=== PATIENT | male | born 1945 | race Caucasian/White ===

== ENCOUNTER 2020-05-26 09:33 | Inpatient (IN) ==
[2020-05-26] MEDS ORDERED: ONDANSETRON HCL/PF 2 MG/ML VIAL IV ONE (10:07)
[2020-05-26] MEDS ORDERED: METOPROLOL TARTRATE 25 MG TABLET PO ONE (10:09)
[2020-05-26] MEDS ORDERED: LISINOPRIL 10 MG TABLET PO ONE (10:09)
[2020-05-26] MEDS ORDERED: PANTOPRAZOLE SODIUM 40 MG TABLET.EC PO ONE (10:11)
[2020-05-26] MEDS ORDERED: NON-FORMULARY 1 DOSE DOSE PO SCH (10:15)
[2020-05-26 10:21] LABS: Hemoglobin 9.4 gm/dL (13.5-18.0); Mean Cell Volume 95.4 fl (78-100); Mean Corpuscular Hemoglobin 30.9 pg (27-31); Mean Corpuscular Hgb Conc 32.4 g/dl (32-36); Mean Platelet Volume 10.5 fl (8-11.3); Neutrophil % 75.1 % (42-75.0); Platelet Count 133 K/mm3 (150-450); Red Blood Count 3.04 M/mm3 (4.7-6.0); Red Cell Distribution Width 13.8 % (11.5-14.0)
[2020-05-26 10:38] LABS: Anion Gap 19.5 mmol/L (6.8-13.8); BUN/Creatinine Ratio 24.6 (9.0-21.6); Calcium * 8.5 mg/dL (7.9-10.9); Carbon Dioxide 22.9 mmol/L (24-32.6); Potassium 3.4 mmol/L (3.4-4.6); Total Protein 6.6 gm/dL (6.2-8.2); Troponin I 0.102 ng/mL (0.00-0.10)
[2020-05-26] MEDS ORDERED: NORMAL SALINE 500 ML IV ONE (10:43)
--- NOTE | 2020-05-26 10:49 | ERNOTE ---
Medical Problem HPI - Narrative Date of Service: 05/26/20 - General Chief Complaint: General Assessment Time Seen by Provider: 05/26/20 09:49 Source: patient Exam Limitations: no limitations - Immun/Allergies/Home Medications Immunizations: IMMUNIZATION HX Immunizations Up to Date Yes History of Influenza Vaccine Yes Hx Pneumococcal Vaccination Yes Allergies/Adverse Reactions: Allergies No Known Allergies Allergy (Unverified 03/06/14 13:51) Home Medications: HOME MEDICATIONS Aspirin [Aspirin EC] 81 mg PO DAILY 05/26/20 [Last Taken Unknown] Atorvastatin Calcium [Lipitor] 20 mg PO DAILY 05/26/20 [Last Taken Unknown] Chlorthalidone [Hygroton] 25 mg PO DAILY 05/26/20 [Last Taken Unknown] Folic Acid 1 mg PO DAILY 05/26/20 [Last Taken Unknown] Insulin Glargine,Hum.rec.anlog [Lantus] 30 units SC HS 05/26/20 [Last Taken Unknown] Lisinopril [Zestril] 40 mg PO DAILY 05/26/20 [Last Taken Unknown] Methotrexate Sodium [Methotrexate] 2.5 mg PO DAILY 05/26/20 [Last Taken Unknown] Metoprolol Tartrate [Lopressor] 25 mg PO BID 05/26/20 [Last Taken Unknown] Terazosin HCl 10 mg PO DAILY 05/26/20 [Last Taken Unknown] glipiZIDE [Glipizide] 5 mg PO DAILY 05/26/20 [Last Taken Unknown] sulfaSALAzine [Azulfidine] 1,500 mg PO TID 05/26/20 [Last Taken Unknown] - History of Present History Narrative: This patient is 74-year-old male who was brought in by his brother for evaluation. The patient says that he does not feel well. The patient does not get any more specific. He denies fever and cold symptoms. He has a chronic cough that has been attributed to some of his medications. He is feeling lightheaded. He is nauseated once in a while. He has had diarrhea for the past 2 days. He denies headache. He denies chest pain. He denies any other aches or pains. He says that he has been taking his medication. He has not taken any this morning. His brother says that the patient ran out of food at home. He has not eaten for a number days. The brother took him to a restaurant this morning and he only had 1 bite of pancake and felt like he could not eat anymore. Review of Systems - Review of Systems Constitutional: Present: malaise. Absent: recent illness, fever EYE: Absent: vision changes ENT: Absent: ear pain, nose congestion, nasal drainage, sore throat Respiratory: Present: cough. Absent: shortness of breath Cardiology: Absent: chest pain, palpitations, syncope Gastrointestinal/Abdominal: Present: nausea, diarrhea, eating less. Absent: vomiting, constipation, abdominal pain, drinking less Genitourinary: Absent: frequency, pain, dysuria, hematuria Musculoskeletal: Absent: back pain, neck pain, joint pain Skin: Absent: rash Neurological: Present: dizziness/light-headedness. Absent: headache Endocrine: Present: other - He has diabetes and reports that he has been taking his medications. Hematologic/Lymphatic: Present: other - No active bleeding Psych: Present: no symptoms reported Medical History (Last Reviewed 05/26/20 @ 11:10 by Alfredo Frazier MD) BPH (benign prostatic hyperplasia) Diabetes Hypertension Hyperthyroidism Prostate cancer Surgical History: Surgical History (Last Reviewed 05/26/20 @ 11:10 by Alfredo Frazier MD) Hx laparoscopic cholecystectomy Hx of tonsillectomy Family History: Family History (Last Reviewed 05/26/20 @ 11:10 by Alfredo Frazier MD) Other No pertinent family history Social History: (Last Reviewed 05/26/20 @ 11:10 by Alfredo Frazier MD) Social History: lives independently: Yes household members: none Tobacco: Smoking Status: Former smoker Alcohol: alcohol intake: former Substance Use: substance use type: does not use Physical Exam - Physical Exam General Appearance: Present: wd/wn, alert, no apparent distress Head Exam: Present: normal inspection, no evidence of injury Eye Exam: Normal inspection: bilateral Ears, Nose, Throat: Present: normal ENT inspection Neck: Present: normal inspection Respiratory: Present: no respiratory distress, decreased breath sounds - Right side and left lower lobe Cardiovascular/Chest: Present: regular rate, rhythm, no murmur Gastrointestinal/Abdominal: Present: normal bowel sounds, nontender, nondistended, soft, no organomegaly Back Exam: Present: normal inspection, normal range of motion Extremity Exam: Present: normal inspection, non-tender Neurological Exam: Present: alert, oriented, normal mood/affect - Flat affect., no motor/sensory deficits - No gross lateralizing deficit. Skin Exam: Present: normal color, warm/dry Progress - Date and Time Seen: Date and Time: 05/26/20 12:49 The x-ray, EKG, and labs are back. We have asked for records from the [facility]. I spoke with Dr. Kay who agreed to take care of the patient here. I spoke with the [facility] who wanted to be sure the patient agreed to transfer. The patient does not want to go to the [facility]. The [facility] will fax a refusal form. - Results and Orders Patient's Lab Results:: I have reviewed the patient's lab results. Results and Orders: Laboratory Tests 05/26/20 05/26/20 10:15 10:15 WBC 4.0 RBC 3.04 L Hgb 9.4 L Hct 29.0 L MCV 95.4 MCH 30.9 MCHC 32.4 RDW 13.8 Plt Count 133 L MPV 10.5 Immature Gran % (Auto) 1.00 H Immature Gran # (Auto) 0.04 H Neutrophils % 75.1 H Lymphocytes % 12.1 L Monocytes % 11.6 H Eosinophils % 0.0 Basophils % 0.2 Nucleated RBC % 0.0 Neutrophils # 3.0 Lymphocytes # 0.49 L Monocytes # 0.5 Eosinophils # 0.0 Absolute Basophils 0.0 Sodium 136 Plasma Sodium 137 Potassium 3.4 Chloride 97 Carbon Dioxide 22.9 L Anion Gap 19.5 H BUN 44 H Creatinine 1.79 H Est GFR (Non-Af Amer) 39 L BUN/Creatinine Ratio 24.6 H Random Glucose 160 H Calcium 8.5 Calcium Adj for Albumin 9.0 Total Bilirubin 1.0 AST 59 H ALT 39 Alkaline Phosphatase 67 Troponin I 0.102 H Total Protein 6.6 Albumin 3.0 L Laboratory Tests 05/26/20 11:59 Urine Color Yellow Urine Appearance Slightly cloudy Urine pH 5.5 Ur Specific [place] 1.030 Urine Protein 100 H Urine Glucose (UA) Negative Urine Ketones 15 Urine Blood 25 H Urine Nitrate Negative Urine Bilirubin 1 H Urine Urobilinogen Normal Ur Leukocyte Esterase Negative Urine RBC 0-5 Urine WBC 0-5 Ur Epithelial Cells None seen Urine Bacteria 1+ H Urine Culture Comments No culture indicated - Vital Signs Patient's Vital Signs:: I have reviewed the patient's vital signs. Vital Signs: Vital Signs 05/26/20 09:35 Temperature 36.5 C Pulse Rate 92 Respiratory Rate 12 Blood Pressure 188/59 H O2 Sat by Pulse Oximetry 94 - EKG EKG #1 EKG read: Interp. by me EKG Comments: Sinus rhythm Rate 87 Right bundle branch block Left anterior fascicular block No acute appearing ST or T wave changes No old to compare - X-Ray X-Ray #1 X-Ray: chest Interpretation: Interp. by me X-ray Comments: Chest PA & Lateral *~ Exam Date: 05/26/2020 10:24 Ordering Physician: Alfredo Frazier MD Chest PA Lateral * History: decresed breath sounds on right weakness. Not eating. Diarrhea last 3 days. Technique: Frontal and lateral views of the chest. (2) views. Comparison: None. Findings: The lungs are symmetrically inflated. No focal consolidation. No pneumothorax or pleural effusion. The cardiac silhouette is borderline enlarged. Scattered calcified granulomas. Atherosclerotic changes noted at the aortic arch. Mediastinal contours and pulmonary vasculature are normal. Degenerative changes noted. Surgical clips project over the upper abdomen. IMPRESSION: No acute pulmonary findings. Borderline cardiac silhouette enlargement. No radiographic evidence of congestive heart failure. Electronically signed by Dakota Cerrato D.O.. - Progress/Reassessment Chief Complaint: General Assessment Departure Clinical Impression: Dehydration, Elevated troponin, Gastritis, Diarrhea - Departure Disposition: Still a patient Condition: Stable Referrals: Melody Mahoney MD [Primary Care Provider] -
[2020-05-26] MEDS: NORMAL SALINE 1,000 ML IV ONE ×3 (11:01→12:05)
[2020-05-26] MEDS ORDERED: CHLORTHALIDONE 25 MG TABLET PO ONE (11:30)
[2020-05-26 12:19] LABS: Urine Appearance Slightly Cloudy (CLEAR); Urine Color Yellow
[2020-05-26 12:20] LABS: Urine Bacteria 1+; Urine Bilirubin 1 mg/dl (NEGATIVE); Urine Blood 25 /ul (NEGATIVE); Urine Ketone 15 mg/dL (NEGATIVE); Urine Nitrite Negative (NEGATIVE); Urine Protein 100 mg/dL (NEGATIVE); Urine RBC 0-5 /hpf (0-5); Urine Urobilinogen Normal (NORMAL); Urine WBC 0-5 /hpf (0-5); Urine pH 5.5 pH (5.0-7.0)
[2020-05-26] MEDS ORDERED: KETAMINE HCL 50 MG/ML VIAL IV PRN ×2 (13:26→13:27)
[2020-05-26] MEDS: ACETAMINOPHEN 500 MG TABLET PO PRN (21:22)
[2020-05-26] MEDS: METOPROLOL TARTRATE 25 MG TABLET PO SCH (21:22)
[2020-05-27] MEDS: NORMAL SALINE 1,000 ML IV PRN ×3 (00:19→16:45)
--- NOTE | 2020-05-27 05:32 | HP ---
Chief Complaint - Chief Complaint Date of Service: 05/26/20 Time of Service: 20:00 Chief Complaint: Decreased appetite History of Present Illness: Michael is a 74 yo male presenting to the [facility] ER for decreased appetite. He reports the last week having decreased appetite, although he thinks he has been drinking appropriately. He thought his appetite was a little better so he called his son who took him out to eat but he was only able to eat a few bites and was then brought to the ER to be evaluated. In the ER his creatinine was elevated at 1.79. His troponin is elevated at 0.102. He denies chest pain, shortness of breath, or any other new symptoms beyond fatigue and decreased appetite. His COVID-19 test in the ER was positive. Medical History (Last Reviewed 05/26/20 @ 15:01 by Chapin Chou RN) BPH (benign prostatic hyperplasia) Diabetes Hypertension Hyperthyroidism Prostate cancer Surgical History: Surgical History (Last Reviewed 05/26/20 @ 15:01 by Chapin Chou RN) Hx laparoscopic cholecystectomy Hx of tonsillectomy Family History: Family History (Last Reviewed 05/26/20 @ 15:01 by Chapin Chou RN) Other No pertinent family history Social History: (Last Reviewed 05/26/20 @ 15:01 by Chapin Chou RN) Social History: lives independently: Yes household members: none Tobacco: Smoking Status: Former smoker Alcohol: alcohol intake: former Substance Use: substance use type: does not use Review Of Systems (GEN) - Review of Systems Generalized/Overall Review: Present: Weakness. Absent: Chills, Fever Respiratory: Absent: Cough, Shortness of Breath Cardiac: Absent: Chest Pain, Edema, Palpitations Abdominal: Absent: Nausea, Vomiting Genitourinary: Present: No Symptoms Reported Musculoskeletal: Present: No Symptoms Reported Neurological: Present: No Symptoms Reported Skin: Present: No Symptoms Reported Immunizations: IMMUNIZATION HX Immunizations Up to Date Yes History of Influenza Vaccine Yes Hx Pneumococcal Vaccination Yes Allergies/Adverse Reactions: Allergies Allergy/AdvReac Type Severity Reaction Status Date / Time No Known Allergies Allergy Unverified 05/26/20 15:01 Home Medications: HOME MEDICATIONS Aspirin [Aspirin EC] 81 mg PO DAILY 05/26/20 [Last Taken Unknown] Atorvastatin Calcium [Lipitor] 20 mg PO DAILY 05/26/20 [Last Taken Unknown] Chlorthalidone [Hygroton] 25 mg PO DAILY 05/26/20 [Last Taken Unknown] Folic Acid 1 mg PO DAILY 05/26/20 [Last Taken Unknown] Insulin Glargine,Hum.rec.anlog [Lantus] 30 units SC HS 05/26/20 [Last Taken Unknown] Lisinopril [Zestril] 40 mg PO DAILY 05/26/20 [Last Taken Unknown] Methotrexate Sodium [Methotrexate] 2.5 mg PO DAILY 05/26/20 [Last Taken Unknown] Metoprolol Tartrate [Lopressor] 25 mg PO BID 05/26/20 [Last Taken Unknown] Terazosin HCl 10 mg PO DAILY 05/26/20 [Last Taken Unknown] glipiZIDE [Glipizide] 5 mg PO DAILY 05/26/20 [Last Taken Unknown] sulfaSALAzine [Azulfidine] 1,500 mg PO TID 05/26/20 [Last Taken Unknown] Exam - Exam Vital Signs: Vital Signs - Last Taken Temp 37.6 C 05/27/20 02:52 Pulse 59 L 05/27/20 02:52 Resp 14 05/27/20 02:52 BP 129/51 05/27/20 02:52 Pulse Ox 98 05/27/20 02:52 Constitutional: Present: Alert, Oriented x3, Cooperative ENT Exam: Present: hearing grossly normal Eye Exam: bilateral eye: normal inspection Respiratory: Present: lungs clear, normal breath sounds, no respiratory distress Cardiovascular/Chest: Present: regular rate, rhythm, no murmur Peripheral Pulses: radial (R): 2+, radial (L): 2+ Abdomen: Present: Normal bowel sounds, soft, nontender, nondistended Skin Exam: Present: normal color, warm/dry, no cyanosis Appearance: Present: appropriate appearance, appropriate insight Eye contact: Present: cooperative, good eye contact, normal speech Thoughts: Present: normal thought pattern, no apparent hallucination Diagnostic Studies: Abnormal Lab Results 05/26/20 05/26/20 05/26/20 Range/Units 10:15 10:15 11:59 RBC 3.04 L (4.7-6.0) M/mm3 Hgb 9.4 L (13.5-18.0) gm/dL Hct 29.0 L (42.0-52.0) % Plt Count 133 L (150-450) K/mm3 Immature Gran % (Auto) 1.00 H (0.001-0.429) % Immature Gran # (Auto) 0.04 H (0.000-0.0310) K/mm3 Neutrophils % 75.1 H (42-75.0) % Lymphocytes % 12.1 L (20-51) % Monocytes % 11.6 H (0.0-9) % Lymphocytes # 0.49 L (1.5-3.5) k/mm3 Carbon Dioxide 22.9 L (24-32.6) mmol/L Anion Gap 19.5 H (6.8-13.8) mmol/L BUN 44 H (6-23) mg/dL Creatinine 1.79 H (0.4-1.4) mg/dL Est GFR (Non-Af Amer) 39 L (60-130) mL/min BUN/Creatinine Ratio 24.6 H (9.0-21.6) Random Glucose 160 H (70-110) mg/dL AST 59 H (0-48) U/L Troponin I 0.102 H (0.00-0.10) ng/mL Albumin 3.0 L (3.4-5.0) gm/dl Urine Protein 100 H (NEGATIVE) mg/dL Urine Blood 25 H (NEGATIVE) /ul Urine Bilirubin 1 H (NEGATIVE) mg/dl Urine Bacteria 1+ H (NONE) SARS-CoV-2 (PCR) (NotDetected) 05/26/20 05/26/20 Range/Units 12:59 13:28 RBC (4.7-6.0) M/mm3 Hgb (13.5-18.0) gm/dL Hct (42.0-52.0) % Plt Count (150-450) K/mm3 Immature Gran % (Auto) (0.001-0.429) % Immature Gran # (Auto) (0.000-0.0310) K/mm3 Neutrophils % (42-75.0) % Lymphocytes % (20-51) % Monocytes % (0.0-9) % Lymphocytes # (1.5-3.5) k/mm3 Carbon Dioxide (24-32.6) mmol/L Anion Gap (6.8-13.8) mmol/L BUN (6-23) mg/dL Creatinine (0.4-1.4) mg/dL Est GFR (Non-Af Amer) (60-130) mL/min BUN/Creatinine Ratio (9.0-21.6) Random Glucose (70-110) mg/dL AST (0-48) U/L Troponin I 0.156 H* (0.00-0.10) ng/mL Albumin (3.4-5.0) gm/dl Urine Protein (NEGATIVE) mg/dL Urine Blood (NEGATIVE) /ul Urine Bilirubin (NEGATIVE) mg/dl Urine Bacteria (NONE) SARS-CoV-2 (PCR) Detected H (NotDetected) Laboratory Results WBC 4.0 K/mm3 (4.0-10.5) 05/26/20 10:15 RBC 3.04 M/mm3 (4.7-6.0) L 05/26/20 10:15 Hgb 9.4 gm/dL (13.5-18.0) L 05/26/20 10:15 Hct 29.0 % (42.0-52.0) L 05/26/20 10:15 MCV 95.4 fl (78-100) 05/26/20 10:15 MCH 30.9 pg (27-31) 05/26/20 10:15 MCHC 32.4 g/dl (32-36) 05/26/20 10:15 RDW 13.8 % (11.5-14.0) 05/26/20 10:15 Plt Count 133 K/mm3 (150-450) L 05/26/20 10:15 MPV 10.5 fl (8-11.3) 05/26/20 10:15 Immature Gran % (Auto) 1.00 % (0.001-0.429) H 05/26/20 10:15 Immature Gran # (Auto) 0.04 K/mm3 (0.000-0.0310) H 05/26/20 10:15 Neutrophils % 75.1 % (42-75.0) H 05/26/20 10:15 Lymphocytes % 12.1 % (20-51) L 05/26/20 10:15 Monocytes % 11.6 % (0.0-9) H 05/26/20 10:15 Eosinophils % 0.0 % (0.0-3.0) 05/26/20 10:15 Basophils % 0.2 % (0.0-1.0) 05/26/20 10:15 Nucleated RBC % 0.0 k/mm3 (0-1) 05/26/20 10:15 Neutrophils # 3.0 K/mm3 (1.3-6.0) 05/26/20 10:15 Lymphocytes # 0.49 k/mm3 (1.5-3.5) L 05/26/20 10:15 Monocytes # 0.5 k/mm3 (0.0-1.0) 05/26/20 10:15 Eosinophils # 0.0 k/mm3 (0.0-0.7) 05/26/20 10:15 Absolute Basophils 0.0 k/mm3 (0.0-0.1) 05/26/20 10:15 Sodium 136 mmol/L (132-142) 05/26/20 10:15 Plasma Sodium 137 mmol/L (130-142) 05/26/20 10:15 Potassium 3.4 mmol/L (3.4-4.6) 05/26/20 10:15 Chloride 97 mmol/L (97-106) 05/26/20 10:15 Carbon Dioxide 22.9 mmol/L (24-32.6) L 05/26/20 10:15 Anion Gap 19.5 mmol/L (6.8-13.8) H 05/26/20 10:15 BUN 44 mg/dL (6-23) H 05/26/20 10:15 Creatinine 1.79 mg/dL (0.4-1.4) H 05/26/20 10:15 Est GFR (Non-Af Amer) 39 mL/min (60-130) L 05/26/20 10:15 BUN/Creatinine Ratio 24.6 (9.0-21.6) H 05/26/20 10:15 Random Glucose 160 mg/dL (70-110) H 05/26/20 10:15 Calcium 8.5 mg/dL (7.9-10.9) 05/26/20 10:15 Calcium Adj for Albumin 9.0 mg/dL (8.4-10.2) 05/26/20 10:15 Total Bilirubin 1.0 mg/dL (0.0-1.1) 05/26/20 10:15 AST 59 U/L (0-48) H 05/26/20 10:15 ALT 39 U/L (19-67) 05/26/20 10:15 Alkaline Phosphatase 67 U/L (50-170) 05/26/20 10:15 Troponin I 0.156 ng/mL (0.00-0.10) H* 05/26/20 13:28 Total Protein 6.6 gm/dL (6.2-8.2) 05/26/20 10:15 Albumin 3.0 gm/dl (3.4-5.0) L 05/26/20 10:15 Urine Color Yellow 05/26/20 11:59 Urine Appearance Slightly cloudy (CLEAR) 05/26/20 11:59 Urine pH 5.5 pH (5.0-7.0) 05/26/20 11:59 Ur Specific [place] 1.030 SP.GR. (1.005-1.030) 05/26/20 11:59 Urine Protein 100 mg/dL (NEGATIVE) H 05/26/20 11:59 Urine Glucose (UA) Negative mg/dL (NEGATIVE) 05/26/20 11:59 Urine Ketones 15 mg/dL (NEGATIVE) 05/26/20 11:59 Urine Blood 25 /ul (NEGATIVE) H 05/26/20 11:59 Urine Nitrate Negative (NEGATIVE) 05/26/20 11:59 Urine Bilirubin 1 mg/dl (NEGATIVE) H 05/26/20 11:59 Urine Urobilinogen Normal EU/dl (NORMAL) 05/26/20 11:59 Ur Leukocyte Esterase Negative /ul (NEGATIVE) 05/26/20 11:59 Urine RBC 0-5 /hpf (0-5) 05/26/20 11:59 Urine WBC 0-5 /hpf (0-5) 05/26/20 11:59 Ur Epithelial Cells None seen /hpf (0-5) 05/26/20 11:59 Urine Bacteria 1+ (NONE) H 05/26/20 11:59 Urine Culture Comments No culture indicated 05/26/20 11:59 SARS-CoV-2 (PCR) Detected (NotDetected) H 05/26/20 12:59 Assessment/Plan - Narrative Narrative: Michael is a 74 yo male with acute renal failure secondary to poor oral intake secondary to COVID19. His creatinine is elevated at 1.7. I do not have a baseline for him, but suspect this is new. Will treat with IV fluids as he has had decreased oral intake, likely from COVID-19 which was just diagnosed. I suspect with IV fluids he will be improved and should be able to discharge to home tomorrow, will admit to observation. He does not appear to have any respiratory distress or failure secondary to COVID and is asymptomatic from a respiratory standpoint. Will monitor respiratory status while here. - Assessment/Plan (1) Acute renal failure Problem: Acute (2) Moderate dehydration Problem: Acute (3) Elevated troponin Problem: Acute (4) COVID-19 Problem: Acute
[2020-05-27] MEDS: METOPROLOL TARTRATE 25 MG TABLET PO SCH ×2 (08:33→21:11)
[2020-05-27] MEDS: TERAZOSIN HCL 5 MG CAPSULE PO SCH (08:34)
[2020-05-27] MEDS: ASPIRIN 81 MG TABLET.DR PO SCH (08:34)
[2020-05-27] MEDS: FOLIC ACID 1 MG TABLET PO SCH (08:34)
[2020-05-27] MEDS: sulfaSALAzine 500 MG TABLET PO SCH ×3 (08:34→16:46)
[2020-05-27] MEDS: CHLORTHALIDONE 25 MG TABLET PO SCH (08:34)
[2020-05-27] MEDS: LISINOPRIL 40 MG TABLET PO SCH (08:34)
[2020-05-27] MEDS: ROSUVASTATIN CALCIUM 10 MG TABLET PO SCH (08:34)
[2020-05-27] MEDS ORDERED: METHOTREXATE SODIUM 2.5 MG TABLET PO SCH (09:00)
[2020-05-27 09:47] LABS: Albumin * 2.5 gm/dl (3.4-5.0); Anion Gap 12.1 mmol/L (6.8-13.8); BUN/Creatinine Ratio 22.7 (9.0-21.6); Bilirubin, Total 0.7 mg/dL (0.0-1.1); Ca. Corrected For Albumin 8.9 mg/dL (8.4-10.2); Carbon Dioxide 25.5 mmol/L (24-32.6); Potassium 3.6 mmol/L (3.4-4.6); Total Protein 5.8 gm/dL (6.2-8.2)
[2020-05-27 09:48] LABS: Troponin I 0.075 ng/mL (0.00-0.10)
--- NOTE | 2020-05-27 23:36 | PN ---
Subjective - Date and Time Seen Date: 05/27/20 Time: 09:15 Subjective Narrative: Michael reports feeling a little better today. Creatinine is a little better, he does not have much appetite back. Later this evening nursing reports oxygen dropped to 87% and he was placed on 2lpm of oxygen. Objective - Vitals Vitals: Last Vital Signs Temp 37.6 C 05/27/20 17:41 Pulse 81 05/27/20 21:11 Resp 24 H 05/27/20 17:41 BP 173/62 H 05/27/20 21:11 Pulse Ox 96 05/27/20 22:10 - Abnormal Lab Findings Abnormal Lab Findings: Abnormal Lab Results 05/27/20 Range/Units 09:24 BUN 39 H (6-23) mg/dL Creatinine 1.72 H (0.4-1.4) mg/dL Est GFR (Non-Af Amer) 41 L (60-130) mL/min BUN/Creatinine Ratio 22.7 H (9.0-21.6) Random Glucose 211 H D (70-110) mg/dL Total Protein 5.8 L (6.2-8.2) gm/dL Albumin 2.5 L (3.4-5.0) gm/dl - Exam Constitutional: Present: Alert, Oriented x3 ENT Exam: Present: hearing grossly normal Respiratory: Present: lungs clear, normal breath sounds, no respiratory distress Cardiovascular/Chest: Present: regular rate, rhythm, no murmur Abdomen: Present: Normal bowel sounds, soft, nontender Skin Exam: Present: normal color, warm/dry, no cyanosis Assessment/Plan Plan Narrative: Troponin trended down. Renal function improved a little but not significantly. Became hypoxic late this evening will start treatment for COVID19 with Remdesivir and Dexamethasone. Will admit to acute inpatient status due to development of acute respiratory failure and need for oxygen secondary to COVID19. - Problems/Diagnosis (1) Acute renal failure Problem: Acute (2) Moderate dehydration Problem: Acute (3) Elevated troponin Problem: Acute (4) COVID-19 Problem: Acute (5) Acute respiratory failure Problem: Acute Qualifiers: Respiratory failure complication: hypoxia Qualified Code(s): J96.01 - Acute respiratory failure with hypoxia
[2020-05-28] MEDS: DEXAMETHASONE SODIUM PHOSP/PF 10 MG/ML VIAL IV SCH ×2 (00:05→20:56)
[2020-05-28] MEDS: ACETAMINOPHEN 500 MG TABLET PO PRN (00:27)
[2020-05-28] MEDS: NORMAL SALINE 1,000 ML IV PRN ×3 (00:30→17:08)
[2020-05-28] MEDS: LISINOPRIL 40 MG TABLET PO SCH (08:55)
[2020-05-28] MEDS: ROSUVASTATIN CALCIUM 10 MG TABLET PO SCH (08:55)
[2020-05-28] MEDS: sulfaSALAzine 500 MG TABLET PO SCH ×3 (08:55→17:09)
[2020-05-28] MEDS: FOLIC ACID 1 MG TABLET PO SCH (08:55)
[2020-05-28] MEDS: ASPIRIN 81 MG TABLET.DR PO SCH (08:55)
[2020-05-28] MEDS: METOPROLOL TARTRATE 25 MG TABLET PO SCH ×2 (08:55→20:57)
[2020-05-28] MEDS: CHLORTHALIDONE 25 MG TABLET PO SCH (08:55)
[2020-05-28] MEDS: TERAZOSIN HCL 5 MG CAPSULE PO SCH (08:56)
[2020-05-28] MEDS ORDERED: METHOTREXATE SODIUM 2.5 MG TABLET PO SCH (09:00)
[2020-05-28 09:05] LABS: Hematocrit 27.2 % (42.0-52.0); Hemoglobin 8.7 gm/dL (13.5-18.0); Mean Cell Volume 96.8 fl (78-100); Mean Platelet Volume 10.7 fl (8-11.3); Neutrophil # 4.1 K/mm3 (1.3-6.0); Neutrophil % 83.7 % (42-75.0); Platelet Count 142 K/mm3 (150-450); Red Blood Count 2.81 M/mm3 (4.7-6.0); Red Cell Distribution Width 13.5 % (11.5-14.0); White Blood Count 4.9 K/mm3 (4.0-10.5)
[2020-05-28 09:17] LABS: Albumin * 2.3 gm/dl (3.4-5.0); Anion Gap 12.5 mmol/L (6.8-13.8); BUN/Creatinine Ratio 20.5 (9.0-21.6); Bilirubin, Total 0.7 mg/dL (0.0-1.1); Ca. Corrected For Albumin 8.8 mg/dL (8.4-10.2); Calcium * 7.8 mg/dL (7.9-10.9); Carbon Dioxide 24.4 mmol/L (24-32.6); Potassium 3.9 mmol/L (3.4-4.6); Total Protein 5.7 gm/dL (6.2-8.2)
[2020-05-28] MEDS ORDERED: NITROGLYCERIN 0.4 MG/TAB BTL SL PRN (11:42)
[2020-05-28] MEDS: INSULIN LISPRO 100 UNITS/ML VIAL SC SCH ×2 (17:15→21:02)
--- NOTE | 2020-05-28 22:37 | PN ---
Subjective - Date and Time Seen Date: 05/28/20 Time: 08:45 Subjective Narrative: Michael reports feeling better today. Still using oxygen this morning but able to wean off during the day. Creatinine improved to 1.6. His appetite is a little better but still only ate jello cups during the day. Objective - Vitals Vitals: Last Vital Signs Temp 36.7 C 05/28/20 18:39 Pulse 80 05/28/20 20:57 Resp 21 H 05/28/20 18:39 BP 185/70 H 05/28/20 20:57 Pulse Ox 94 05/28/20 18:39 - Abnormal Lab Findings Abnormal Lab Findings: Abnormal Lab Results 05/28/20 05/28/20 Range/Units 08:55 08:55 RBC 2.81 L (4.7-6.0) M/mm3 Hgb 8.7 L (13.5-18.0) gm/dL Hct 27.2 L (42.0-52.0) % Plt Count 142 L (150-450) K/mm3 Immature Gran % (Auto) 0.80 H (0.001-0.429) % Immature Gran # (Auto) 0.04 H (0.000-0.0310) K/mm3 Neutrophils % 83.7 H (42-75.0) % Lymphocytes % 10.8 L (20-51) % Lymphocytes # 0.53 L (1.5-3.5) k/mm3 BUN 34 H (6-23) mg/dL Creatinine 1.66 H (0.4-1.4) mg/dL Est GFR (Non-Af Amer) 43 L (60-130) mL/min Random Glucose 266 H (70-110) mg/dL Calcium 7.8 L (7.9-10.9) mg/dL Total Protein 5.7 L (6.2-8.2) gm/dL Albumin 2.3 L (3.4-5.0) gm/dl - Exam Constitutional: Present: Alert, Oriented x3, Cooperative Respiratory: Present: lungs clear, no respiratory distress Cardiovascular/Chest: Present: regular rate, rhythm, no murmur Abdomen: Present: Normal bowel sounds, soft, nontender Extremity: Absent: lower extremity edema Skin Exam: Present: normal color, warm/dry, no cyanosis Neurologic: Present: no motor/sensory deficits, alert, normal mood/affect, oriented x 3 Appearance: Present: appropriate appearance, appropriate insight Eye contact: Present: cooperative, good eye contact, normal speech Thoughts: Present: normal thought pattern, no apparent hallucination Assessment/Plan Plan Narrative: Renal function improved but not normal and his appetite is still not normal, but improved. Brief respiratory failure. He is now off oxygen. This is likely from COVID but case still appears mild. If remains off of oxygen and appetite improves to stay hydrated to prevent this from reoccuring he may be discharged to home tomorrow. - Problems/Diagnosis (1) Acute renal failure Problem: Acute (2) Moderate dehydration Problem: Acute (3) Elevated troponin Problem: Acute (4) COVID-19 Problem: Acute (5) Acute respiratory failure Problem: Acute Qualifiers: Respiratory failure complication: hypoxia Qualified Code(s): J96.01 - Acute respiratory failure with hypoxia
[2020-05-29] MEDS: NORMAL SALINE 1,000 ML IV PRN (00:23)
[2020-05-29] MEDS: LISINOPRIL 40 MG TABLET PO SCH ×2 (00:40→08:22)
[2020-05-29 06:51] LABS: Albumin * 2.5 gm/dl (3.4-5.0); Anion Gap 13.7 mmol/L (6.8-13.8); Bilirubin, Total 0.9 mg/dL (0.0-1.1); Ca. Corrected For Albumin 9.3 mg/dL (8.4-10.2); Calcium * 8.4 mg/dL (7.9-10.9); Carbon Dioxide 22.3 mmol/L (24-32.6); Total Protein 6.1 gm/dL (6.2-8.2)
[2020-05-29] MEDS: INSULIN LISPRO 100 UNITS/ML VIAL SC SCH ×2 (08:15→12:06)
[2020-05-29] MEDS: ROSUVASTATIN CALCIUM 10 MG TABLET PO SCH (08:17)
[2020-05-29] MEDS: sulfaSALAzine 500 MG TABLET PO SCH ×2 (08:18→12:07)
[2020-05-29] MEDS: ASPIRIN 81 MG TABLET.DR PO SCH (08:18)
[2020-05-29] MEDS: FOLIC ACID 1 MG TABLET PO SCH (08:19)
[2020-05-29] MEDS: CHLORTHALIDONE 25 MG TABLET PO SCH (08:19)
[2020-05-29] MEDS: TERAZOSIN HCL 5 MG CAPSULE PO SCH (08:19)
[2020-05-29] MEDS ORDERED: METOPROLOL TARTRATE 100 MG TABLET PO SCH (09:00)
--- NOTE | 2020-05-29 16:41 | DS ---
(1) Acute renal failure Problem: Resolved (2) Moderate dehydration Problem: Resolved (3) Elevated troponin Problem: Resolved (4) COVID-19 Problem: Acute (5) Acute respiratory failure Problem: Resolved Qualifiers: Respiratory failure complication: hypoxia Qualified Code(s): J96.01 - Acute respiratory failure with hypoxia Date of Discharge:: 05/29/20 Hospital Course: Michael is a 74 yo male that was admitted for acute renal failure secondary to moderate dehydration secondary to poor oral intake secondary to COVID19. When he was admitted he had no respiratory symptoms and was admitted for IV fluids in observation. However during observation he developed acute respiratory failure with hypoxia secondary to COVID19 and was placed on oxygen. Within 24 hours however he was weaned from oxygen and has remained on room air sense. He is feeling better and appetite has improved, although it is still less than normal. Vitals are stable and creatinine has improved to near baseline. He was ambulated in his room and was without hypoxia. He was gradually able to ambulate with less fatigue and is ready for home discharge. Will set him up with home health due to acute renal failure, COVID, and history of hypertension. He needs home health to monitor his oral intake and respiratory status and home PT to work on strengthening. He is homebound as it is physically taxing for him to leave the home. At today's discharge time was spent completing a face to face to set up home health. Procedures Performed: none Results and Findings: Lab Pending Results 05/26/20 10:15: WBC 4.0, RBC 3.04 L, Hgb 9.4 L, Hct 29.0 L, MCV 95.4, MCH 30.9, MCHC 32.4, RDW 13.8, Plt Count 133 L, MPV 10.5, Immature Gran % (Auto) 1.00 H, Immature Gran # (Auto) 0.04 H, Neutrophils % 75.1 H, Lymphocytes % 12.1 L, Monocytes % 11.6 H, Eosinophils % 0.0, Basophils % 0.2, Nucleated RBC % 0.0, Neutrophils # 3.0, Lymphocytes # 0.49 L, Monocytes # 0.5, Eosinophils # 0.0, Absolute Basophils 0.0 05/26/20 10:15: Sodium 136, Plasma Sodium 137, Potassium 3.4, Chloride 97, Carbon Dioxide 22.9 L, Anion Gap 19.5 H, BUN 44 H, Creatinine 1.79 H, Est GFR (Non-Af Amer) 39 L, BUN/Creatinine Ratio 24.6 H, Random Glucose 160 H, Calcium 8.5, Calcium Adj for Albumin 9.0, Total Bilirubin 1.0, AST 59 H, ALT 39, Alkaline Phosphatase 67, Troponin I 0.102 H, Total Protein 6.6, Albumin 3.0 L 05/26/20 11:59: Urine Color Yellow, Urine Appearance Slightly cloudy, Urine pH 5.5, Ur Specific [place] 1.030, Urine Protein 100 H, Urine Glucose (UA) Negative, Urine Ketones 15, Urine Blood 25 H, Urine Nitrate Negative, Urine Bilirubin 1 H, Urine Urobilinogen Normal, Ur Leukocyte Esterase Negative, Urine RBC 0-5, Urine WBC 0-5, Ur Epithelial Cells None seen, Urine Bacteria 1+ H, U rine Culture Comments No culture indicated 05/26/20 12:59: SARS-CoV-2 (PCR) Detected H 05/26/20 13:28: Troponin I 0.156 H* 05/27/20 09:24: Sodium 138, Plasma Sodium 140, Potassium 3.6, Chloride 104, Carbon Dioxide 25.5, Anion Gap 12.1, BUN 39 H, Creatinine 1.72 H, Est GFR (Non- Af Amer) 41 L, BUN/Creatinine Ratio 22.7 H, Random Glucose 211 H D, Calcium 8.0, Calcium Adj for Albumin 8.9, Total Bilirubin 0.7, AST 45, ALT 31, Alkaline Phosphatase 58, Troponin I 0.075, Total Protein 5.8 L, Albumin 2.5 L 05/28/20 08:55: WBC 4.9 D, RBC 2.81 L, Hgb 8.7 L, Hct 27.2 L, MCV 96.8, MCH 31.0, MCHC 32.0, RDW 13.5, Plt Count 142 L, MPV 10.7, Immature Gran % (Auto) 0.80 H, Immature Gran # (Auto) 0.04 H, Neutrophils % 83.7 H, Lymphocytes % 10.8 L, Monocytes % 4.5, Eosinophils % 0.0, Basophils % 0.2, Nucleated RBC % 0.0, Neutrophils # 4.1, Lymphocytes # 0.53 L, Monocytes # 0.2, Eosinophils # 0.0, Absolute Basophils 0.0 05/28/20 08:55: Sodium 138, Plasma Sodium 141, Potassium 3.9, Chloride 105, Carbon Dioxide 24.4, Anion Gap 12.5, BUN 34 H, Creatinine 1.66 H, Est GFR (Non- Af Amer) 43 L, BUN/Creatinine Ratio 20.5, Random Glucose 266 H, Calcium 7.8 L, Calcium Adj for Albumin 8.8, Total Bilirubin 0.7, AST 40, ALT 32, Alkaline Phosphatase 59, Total Protein 5.7 L, Albumin 2.3 L 05/28/20 12:01: Troponin I 0.055 05/29/20 06:35: Sodium 137, Plasma Sodium 140, Potassium 4.0, Chloride 105, Carbon Dioxide 22.3 L, Anion Gap 13.7, BUN 29 H, Creatinine 1.45 H, Est GFR (Non-Af Amer) 50 L, BUN/Creatinine Ratio 20.0, Random Glucose 263 H, Calcium 8.4, Calcium Adj for Albumin 9.3, Total Bilirubin 0.9, AST 33, ALT 34, Alkaline Phosphatase 66, Total Protein 6.1 L, Albumin 2.5 L Discharge Location: Home Disposition: Home Health Service Home Health Agency: [facility] Home Health Condition: Stable Face to Face Encounter completed per CMS Guidelines: Yes Discharge Activity: Activity as tolerated Discharge Diet: Low salt Referrals: Melody Mahoney MD [Primary Care Provider] - One Week (Video) Problem Oriented Discharge Instructions to Patient/Family: Acute Kidney Injury, Adult, COVID-19 Additional Patient Instructions (free text): [facility] new at discharge, please call and fax discharge information to them. Home PT and OT. Prescriptions (Any new or edited meds): Metoprolol Tartrate [Lopressor] 100 mg PO BID #60 tab Transmission Status: Pending to [facility], [place], [place] Complete Home Medications List: Complete Home Medication List: Aspirin [Aspirin EC] 81 mg PO DAILY 05/26/20 Atorvastatin Calcium [Lipitor] 20 mg PO DAILY 05/26/20 Chlorthalidone [Hygroton] 25 mg PO DAILY 05/26/20 Folic Acid 1 mg PO DAILY 05/26/20 Insulin Glargine,Hum.rec.anlog [Lantus] 30 units SC 05/26/20 Lisinopril [Zestril] 40 mg PO DAILY 05/26/20 Methotrexate Sodium [Methotrexate] 15 mg PO MO 05/26/20 Terazosin HCl 10 mg PO DAILY 05/26/20 glipiZIDE [Glipizide] 5 mg PO DAILY 05/26/20 sulfaSALAzine [Azulfidine] 1,500 mg PO BID 05/26/20 Acetaminophen [Tylenol] 1,000 mg PO Q6H PRN tablet 05/29/20 Metoprolol Tartrate [Lopressor] 100 mg PO BID #60 tab 05/29/20 Forms: Patient Portal Registration
[2020-05-29 17:34] VITALS: BP 142/70
== END 2020-05-29 18:00 | disposition home health service (06) | DRG 177 ==
LOC: MS 09:33 → ER 09:33 → MS 14:30
PROVIDERS: ADMIT Family Medicine; ATTEND Family Medicine
DX: E11.9 Type 2 diabetes mellitus without complications; E05.90 Thyrotoxicosis, unspecified without thyrotoxic crisis or storm; Z87.891 Personal history of nicotine dependence; J96.01 Acute respiratory failure with hypoxia; I10 Essential (primary) hypertension; R79.89 Other specified abnormal findings of blood chemistry; U07.1 COVID-19; N17.9 Acute kidney failure, unspecified; E86.0 Dehydration